=== PATIENT | female | born 1990 | race Caucasian/White ===

== ENCOUNTER 2024-02-05 04:34 | Day surgery (SDC) | payer BC ==
[2024-02-01 12:09] VITALS: BMI 27.3
[2024-02-05] MEDS ORDERED: LACTATED RINGERS SOLUTION 1,000 ML IV SCH (12:15)
[2024-02-05] MEDS ORDERED: MIDAZOLAM HCL 2 MG/2 ML SINGLE DOSE VIAL ONE (12:51)
[2024-02-05] MEDS ORDERED: FENTANYL CITRATE/PF 50 MCG/ML VIAL ONE ×2 (12:51→13:21)
[2024-02-05] MEDS ORDERED: PROPOFOL 40 ML ONE ×2 (13:15→13:32)
[2024-02-05] MEDS ORDERED: SUCCINYLCHOLINE CHLORIDE 200 MG/10 ML SYRINGE ONE (13:16)
[2024-02-05 15:53] VITALS: BP 108/68; PULSE 72; RESP 16; TEMP 97.8
== END 2024-02-05 15:53 | disposition home or self-care (01) ==
LOC: JASU-SURG 04:34
PROVIDERS: ATTEND Obstetrics & Gynecology
PROC: 0UPD8HZ Removal of Contraceptive Device from Uterus and Cervix, Via Natural or Artificial Opening Endoscopic (ICD-10-PCS; principal; 2024-02-05 12:00)
DX: T83.89XA Other specified complication of genitourinary prosthetic devices, implants and grafts, initial encounter (principal); Y76.8 Miscellaneous obstetric and gynecological devices associated with adverse incidents, not elsewhere classified
CPT/HCPCS: 81025; 88300-TC; 94760